=== PATIENT | female | born 1970 | race Caucasian/White ===

== ENCOUNTER → 2016-11-25 | Outpatient (CLI) | payer BC ==
[~2016-11-25] MED LIST: HYDR-5688 PO
[2016-11-25 17:35] LABS: MEAN CELL VOLUME 87.8 fL (80-100); MEAN CORPUSCULAR HEMOGLOBIN 30.7 pg (25-34); MEAN PLATELET VOLUME 9.5 fL (7.4-10.4); PLATELET COUNT 403 K/uL (130-400); WHITE BLOOD COUNT 9.53 K/uL (4.8-10.8)
== END | disposition home or self-care (01) ==
LOC: C.LAB1850 16:19
PROVIDERS: ATTEND Obstetrics & Gynecology
DX: N92.1 Excessive and frequent menstruation with irregular cycle (principal)

== ENCOUNTER → 2016-11-25 | Outpatient (CLI) | payer BC | END | disposition home or self-care (01) | LOC: C.PAPS 10:15 | PROVIDERS: ATTEND Obstetrics & Gynecology | DX: Z01.419 Encounter for gynecological examination (general) (routine) without abnormal findings (principal) ==

== ENCOUNTER → 2016-12-09 | Outpatient (CLI) | payer BC ==
--- NOTE | 2016-12-09 16:13 | MAMMOGRAPHY REPORT ---
BILATERAL DIGITAL DIAGNOSTIC MAMMOGRAM TOMOSYNTHESIS WITH CAD AND TARGETED LEFT ULTRASOUND: 12/09/2016 CLINICAL HISTORY: Bilateral mammography and follow-up of probably benign findings in the left breast on ultrasound. TECHNIQUE: Breast tomosynthesis in addition to standard 2D mammography was performed. Current study was also evaluated with a Computer Aided Detection (CAD) system. COMPARISON: Comparison is made to exams dated: 01/31/2015 mammogram, 01/11/2014 mammogram, 04/17/2014 u ltrasound, 04/17/2014 mammogram, and 01/31/2015 ultrasound - [facility]. BREAST COMPOSITION: There are scattered areas of fibroglandular density in both breasts. FINDINGS: The parenchymal pattern is similar to prior exams. There are round and punctate microcal cifications scattered in each upper outer posterior breast, that appears similar dating back to the 01/11/2014 mammograms and are therefore most likely benign, given nearly 3 years of stability. Ther e is a lobulated and circumscribed 14 mm mass in the upper outer posterior left breast. Given sligh t differences in positioning this does not appear significantly changed comparing back to the 2013 e xam. No new suspicious mass, architectural distortion or new cluster of suspicious microcalcificati ons are identified. Real-time high-resolution sonographic evaluation was performed in the 3:00 left breast to reevaluate the benign-appearing solid mass and probable cyst cluster. In the 3:00 axis, 3 cm from the nipple, there is a lobulated parallel hypoechoic solid mass measuring 11.9 x 6.2 x 12.6 mm. The 04/17/2014 ultrasound measurements were 12.0 x 12.4 mm, which is unchanged. This is considered benign given g reater than 2 years of stability and most likely represents a fibroadenoma. In the 3:00 left breast , 5 cm from the nipple, a small microcyst cluster is identified, measuring 6.0 x 3.8 x 4.7 mm. Prev ious measurements were 9.4 x 9.6 mm. Given slight differences in measuring technique this is also u nchanged and is benign given the definitive anechoic spaces within. 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 There is no mammographic or targeted sonographic philip dence of malignancy. Recommend routine bilateral mammography in one year, as well as annual mammogr aphy thereafter, based on the [employer] and [employer] recommenda tions. Approximately 10% of breast cancers are not detected with mammography. A negative mammographic repor t should not delay biopsy if a clinically suggestive mass is present. Winnie Honeycutt M.D. ay/:12/09/2016 14:35:09 Applications Sales Representative: Lesvia LEWIS(Oz)([place]), [facility] letter sent: Normal 1/2 BI-RADS Code: ACR BI-RADS Category 2: Benign Ultrasound BI-RADS: ACR BI-RADS Category 2: Benign
== END | disposition home or self-care (01) ==
LOC: C.MAMM 12:18
PROVIDERS: ATTEND Obstetrics & Gynecology
DX: N63 Unspecified lump in breast (principal)

== ENCOUNTER → 2016-12-25 | Outpatient (CLI) | payer BC | END | disposition home or self-care (01) | LOC: C.PATHSPEC 13:22 | PROVIDERS: ATTEND Obstetrics & Gynecology | DX: R93.8 Abnormal findings on diagnostic imaging of other specified body structures (principal) ==

== ENCOUNTER → 2017-09-13 | Outpatient (CLI) | payer BC ==
[~2017-09-13] MED LIST changes: +CIPR1TAB10 PO; -HYDR-5688 PO; +TRAM-453 PO
== END | disposition home or self-care (01) ==
LOC: C.RDSM 13:38
PROVIDERS: ATTEND Physical Medicine & Rehabilitation Sports Medicine
DX: M25.562 Pain in left knee (principal)

== ENCOUNTER 2017-09-22 16:31 | Emergency (ER) | payer BC ==
[~2017-09-22] VITALS: Ht 162.6 cm; Wt 68.0 kg
[2017-09-22 16:33] VITALS: TEMP 37.1; Ht 162.6 cm; Wt 68.0 kg
[2017-09-22] MEDS ORDERED: KETOROLAC TROMETHAMINE 60 MG/2 ML VIAL IM STA (16:49)
[2017-09-22] MEDS ORDERED: ONDANSETRON 4MG OD TAB PO STA (16:49)
[2017-09-22] MEDS ORDERED: CIPR1TAB10 PO (16:54)
--- NOTE | 2017-09-22 17:32 | DIAGNOSTIC IMAGING REPORT ---
R KNEE 3 VIEWS CLINICAL HISTORY: 47 years-old Female presenting with fall, b/l knee pain. TECHNIQUE: Frontal, lateral, and sunrise views of the right knee were obtained. COMPARISON: Correlation made to plain radiographs of the left knee performed the same day. FINDINGS: No acute fracture or malalignment. Mild osteophytosis noted in the lateral and patellofemoral compartments. Suggestion of mild medial joint space narrowing. Small joint effusion. No patellar subluxation. IMPRESSION: 1. Tricompartmental degenerative changes suggested. 2. Small knee joint effusion. 3. No acute osseous injury. Electronically signed by: Jared Santamaria M.D. 09/22/2017 5:30 PM Dictated Date/Time: 09/22/2017 5:29 PM
--- NOTE | 2017-09-22 17:44 | EMERGENCY ROOM VISIT NOTE ---
History First contact with patient: 16:37 Chief Complaint: KNEEPAIN Stated Complaint: B/L KNEE PAIN DUE TO FALL History of Present Illness The patient is a 47 year old female who presents to the Emergency Room with complaints of knee pain following a fall. The patient states that she was at the dog park and was sideswiped by a large dog, causing her to fall. She reports hearing a cracking and crunching sensation in both of her knees. She reports pain in bilateral knees which she rates a 7/10. She states she has had knee surgeries in the past on both knees performed by Dr. Fried. She has had meniscus repairs and cysts removed from the knees. She has most recently seen Dr. Bill last week. He is planning to do a series of Synvisc injections. The patient denies any other injuries. She has not taken anything for pain. She did not hit her head when she fell. She has been unable to walk since the injury. Review of Systems A 6 point review of systems was reviewed with the patient with pertinent positives and negatives as per history of present illness. All else were negative. Social History Smoking Status: Never Smoker Current/Historical Medications Scheduled Ciprofloxacin Hcl (Cipro), 500 MG PO BID Tramadol Hcl (Ultram), 50 MG PO Q4H Physical Exam Vital Signs Date Time Temp Pulse Resp B/P (MAP) Pulse Ox O2 Delivery O2 Flow Rate FiO2 09/22/17 18:40 49 18 116/42 99 Room Air 09/22/17 16:33 37.1 61 16 125/76 96 Room Air Physical Exam VITALS: Vitals are noted on the nurse's note and reviewed by myself. Vital signs stable. GENERAL: This is a 47-year-old female, in no acute distress, nondiaphoretic, well-developed well-nourished. SKIN: The skin was without rashes, erythema, edema, or bruising. HEAD: Normocephalic atraumatic. MUSCULOSKELETAL: There is tenderness to the medial aspect of the right and decreased range of motion secondary to pain. Mild tenderness to the lateral aspect of the left knee and decreased range of motion. There is no obvious joint effusion of either knee. There is no bruising or erythema. NEURO: Patient was alert and oriented to person place and time. Normal sensation to light and sharp touch. Medical Decision & Procedures ER Provider Diagnostic Interpretation: L KNEE 3 VIEWS FINDINGS: No acute fracture or dislocation. Mild tricompartmental osteoarthritis. No intra-articular loose body identified. No osteochondral defect. Mild soft tissue swelling with trace joint effusion. IMPRESSION: 1. Mild tricompartmental osteoarthritis without acute fracture or dislocation. 2. Mild soft tissue swelling with trace joint effusion. R KNEE 3 VIEWS FINDINGS: No acute fracture or malalignment. Mild osteophytosis noted in the lateral and patellofemoral compartments. Suggestion of mild medial joint space narrowing. Small joint effusion. No patellar subluxation. IMPRESSION: 1. Tricompartmental degenerative changes suggested. 2. Small knee joint effusion. 3. No acute osseous injury. Medications Administered Medications (Trade) Dose Ordered Sig/Kanwal Route Start Time Stop Time Status Last Admin Dose Admin Ketorolac Tromethamine (Toradol Inj) 60 mg NOW STAT IM 09/22/17 16:49 09/22/17 16:50 DC 09/22/17 17:00 60 MG Ondansetron HCl (Zofran Odt) 4 mg NOW STAT PO 09/22/17 16:49 09/22/17 16:50 DC 09/22/17 17:00 4 MG Tramadol HCl (Ultram Home Pack) 1 homepack UD ONCE PO 09/22/17 18:15 09/22/17 18:16 DC 09/22/17 18:32 1 HOMEPACK Medical Decision Differential diagnosis includes fracture, contusion, ligamentous injury, meniscal injury, among others. The patient was evaluated as above. She presents complaining of bilateral knee pain after a fall. Patient does have a significant history in both of her knees , with multiple surgeries. X-rays of both knees were performed and show arthritis as well as effusions with no acute bony abnormalities. Patient was placed in Qasim wraps bilaterally and given crutches to aid with ambulation. She was given a home pack and prescription of tramadol for pain. She was treated with Toradol in the emergency department with a little relief. She will follow- up with her established orthopedist for further evaluation. She verbalized understanding of my assessment and treatment plan and was discharged home in good condition. [place] Drug Monitoring Program Search Results: patient reviewed within database Medication Reconcilliation Current Medication List: was personally reviewed by me Blood Pressure Screening Patient's blood pressure: Normal blood pressure Impression Primary Impression: Bilateral knee pain Additional Impression: Fall Departure Information Dispostion Home / Self-Care Condition GOOD Prescriptions Tramadol Hcl (ULTRAM) 50 Mg Tab 50 MG PO Q4H for Pain, #12 TAB For Initial Treatment Prov: Delia Nina PA-C 09/22/17 Referrals Zoya Wu M.D. (PCP) Rohit Bill M.D. Patient Instructions My [facility] Additional Instructions You have been treated in the Emergency Department for Knee Pain. You have been prescribed tramadol to be used for pain control. You cannot drive or consume alcohol while on this medicine. This medicine should only be used for pain that cannot be controlled with [id number]-uvsrcis pain medicines. Stop taking this medication immediately if you have any signs of an allergic reaction. For pain control, you can use the following vkth-noo-fytfmte medicines (if >12 yo): - Regular strength (325mg/tab) Tylenol (acetaminophen) 2 tabs every 4-6 hours as needed. Do not exceed 12 tablets in a 24 hour period. Avoid taking more than 4 grams (4000 mg) of Tylenol per day. This includes any other sources of acetaminophen you may take on a regular basis. - Regular strength (200 mg/tab) Advil (ibuprofen) 1-2 tabs every 4-6 hours as needed. Do not exceed a dose of 3200 mg per day. If this is a recent injury (<24 hrs), ice can be applied to the area of pain for the first 3 days to help decrease pain and inflammation. Ice massages can be performed by freezing water in a paper cup, peeling back the cup to expose the ice and then massaging over the affected area. Follow up with your orthopedist for further evaluation. Call for appointment. Return to the Emergency Department if your current symptoms worsen despite treatment course outlined above. Problem Qualifiers
--- NOTE | 2017-09-22 17:48 | DIAGNOSTIC IMAGING REPORT ---
L KNEE 3 VIEWS HISTORY: 47 years-old Female fall, b/l knee pain acute bilateral knee pain without reported trauma COMPARISON: Left knee radiographs 09/13/2017 TECHNIQUE: 3 views of the left knee FINDINGS: No acute fracture or dislocation. Mild tricompartmental osteoarthritis. No intra-articular loose body identified. No osteochondral defect. Mild soft tissue swelling with trace joint effusion. IMPRESSION: 1. Mild tricompartmental osteoarthritis without acute fracture or dislocation. 2. Mild soft tissue swelling with trace joint effusion. The above report was generated using voice recognition software. It may contain grammatical, syntax or spelling errors. Electronically signed by: Azael Tripathi M.D. 09/22/2017 5:47 PM Dictated Date/Time: 09/22/2017 5:45 PM
[2017-09-22] MEDS ORDERED: TRAMADOL HCL 50 MG HOME PACK PO ONE (18:15)
[2017-09-22] MEDS ORDERED: TRAM-453 PO (18:30)
[2017-09-22 18:40] VITALS: BP 116/42; PULSE 49; O2SAT 99
== END 2017-09-22 18:46 | disposition home or self-care (01) ==
LOC: C.EDB 16:32 → C.EDD 18:46
DX: M25.561 Pain in right knee (principal); M25.562 Pain in left knee; W19.XXXA Unspecified fall, initial encounter; Y92.89 Other specified places as the place of occurrence of the external cause

== ENCOUNTER → 2018-02-25 | Outpatient (CLI) | payer OTHER ==
[~2018-02-25] MED LIST changes: +TRAM-10 PO; -TRAM-453 PO
[2018-02-25 10:08] LABS: BASO ABS # 0.06 K/uL (0-0.2); EOS % 1.7 %; HEMATOCRIT 36.9 % (37-47); HEMOGLOBIN 12.4 g/dL (12.0-16.0); IG# 0.01 K/uL (0.00-0.02); LYMPH % 33.2 %; LYMPH ABS # 1.98 K/uL (1.2-3.4); MEAN CORPUSCULAR HEMOGLOBIN 29.2 pg (25-34); MEAN CORPUSCULAR HGB CONC 33.6 g/dl (32-36); MEAN PLATELET VOLUME 9.1 fL (7.4-10.4); MONO % 5.7 %; MONO ABS # 0.34 K/uL (0.11-0.59); NEUT % 58.2 %; NEUT ABS # 3.48 K/uL (1.4-6.5); PLATELET COUNT 407 K/uL (130-400); RED CELL DISTRIBUTION WIDTH CV 13.9 % (11.5-14.5); WHITE BLOOD COUNT 5.97 K/uL (4.8-10.8)
[2018-02-25 10:35] LABS: BLOOD UREA NITROGEN 11 mg/dl (7-18); CALCIUM 8.7 mg/dl (8.5-10.1); CARBON DIOXIDE 29 mmol/L (21-32); CREATININE 0.86 mg/dl (0.60-1.20); GLUCOSE 82 mg/dl (70-99); SODIUM 137 mmol/L (136-145)
== END ==
LOC: C.CPL 09:36
PROVIDERS: ATTEND Physician Assistant
DX: Z01.818 Encounter for other preprocedural examination (principal)

== ENCOUNTER → 2018-02-25 | Outpatient (CLI) | payer BC, OTHER ==
--- NOTE | 2018-02-25 08:54 | DIAGNOSTIC IMAGING REPORT ---
RIGHT KNEE 5 VIEWS INCLUDING BILATERAL STANDING AP VIEWS CLINICAL HISTORY: RIGHT KNEE INSTABILITY COMPARISON: September 2017 DISCUSSION: The joint spaces appear well-preserved bilaterally. There is mild lateral femoral spurring on the contralateral left knee. No fractures or dislocations of the right knee are visualized. There is a tiny dorsal patellar spur. There is a suprapatellar joint effusion. IMPRESSION: 1. Joint effusion 2. No evidence of fracture 3. Tiny dorsal patellar spur Electronically signed by: Isac Mckeon M.D. 02/25/2018 8:53 AM Dictated Date/Time: 02/25/2018 8:52 AM
== END ==
LOC: C.RDSM 16:25
PROVIDERS: ATTEND Physician Assistant
DX: M25.461 Effusion, right knee (principal); M23.51 Chronic instability of knee, right knee

== ENCOUNTER → 2018-03-15 | Day surgery (SDC) | payer OTHER ==
[2018-03-01 10:50] VITALS: Ht 162.6 cm; Wt 68.2 kg
[~2018-03-15] VITALS: Ht 162.6 cm; Wt 68.2 kg
[~2018-03-15] MED LIST changes: +ATROPINE SULFATE 0.1 MG/ML 5ML SYR IV PRN; +CEFAZOLIN 2000MG IV PUSH 15 ML IV SCH; +CEFAZOLIN 2000MG IV PUSH 15 ML IV STA; -CIPR1TAB10 PO; +DEXAMETHASONE SOD INJ 4 MG/ML VIAL ONE; +EpHEDrine SULFATE INJ 50 MG/ML AMP IV PRN; +EpINEphrine HCL INJ 1 MG/ML 1ML SYRINGE ONE; +FENTANYL CITRATE INJ 50 MCG/1 ML 2 ML VIAL ONE; +FLUMAZENIL 0.1 MG/1 ML 10 ML VIAL IV PRN; +GLYCOPYRROLATE INJ 0.2 MG/ML VIAL ONE; +HYDROmorphone INJ 0.5 MG/0.5 ML SYR ONE; +HYDROmorphone INJ 2 MG/ML SYR/VIAL IV PRN; +KETOROLAC TROMETHAMINE 30 MG/ML VIAL IV. PRN; +LACTATED RINGER'S 1000ML 1,000 ML IV SCH; +LEVOFLOXACIN 500 MG TAB PO SCH; +LIDOCAINE HCL 2% 2 ML VIAL (20MG/ML) ONE; +MIDAZOLAM HCL 1 MG/ML 2ML VIAL ONE; +NALOXONE HCL 0.4 MG/1 ML VIAL/CARP IV PRN; +ONDANSETRON INJ 2 MG/ML 2 ML VIAL IV PRN; +ONDANSETRON INJ 2 MG/ML 2 ML VIAL ONE; +OXYCODONE/ACETAMINOPHEN 5-325 TAB ONE; +OXYCODONE/ACETAMINOPHEN 5-325 TAB PO PRN; +PROMETHAZINE HCL INJ 12.5 MG in SODIUM CHLORIDE 0.9% 50ML 50 ML IV PRN; +PROPOFOL IV EMULSION 10 MG/ML 20 ML VIAL ONE; +ROPIVACAINE 0.5% 5 MG/ML 30 ML VIAL ONE; +SODIUM CHLORIDE 0.9% 1000ML 1,000 ML IV SCH; +SODIUM CHLORIDE 0.9% INJ 10 ML VIAL ONE; +TRAMADOL HCL 50 MG TAB ONE; +TRAMADOL HCL 50 MG TAB PO PRN
--- NOTE | 2018-03-15 06:24 | History & Physical Bridge Note ---
H&P Re-Evaluation Bridge Note: I have examined the patient, reviewed the History & Physical and in the interval since the performance of the History & Physical I have noted the following changes of clinical significance: No changes noted
--- NOTE | 2018-03-15 06:25 | Discharge Instructions ---
Discharge Instructions Date of Service March 15, 2018. Visit Reason for Visit: Right Knee Chronic Acl Tear Discharge Discharge Diagnosis / Problem: same Discharge Goals Goal(s): Decrease discomfort, Improve function Medications Stopped Medications Name(s): na Restart Stopped Medication(s): use scripts as directed. Activity Recommendations Activity Limitations: as noted below Lifting Limitations: until after follow-up appointment Exercise/Sports Limitations: until after follow-up appointment May Resume Sexual Activity: when tolerated Shower/Bathe: keep incision dry Driving or Machine Use: Weightbearing Status: Right weightbearing (as tolerated) Anesthesia . Post Anesthesia Instructions: If you have had General Anesthesia or IV Sedation: * Do not drive today. * Resume driving when surgeon permits. * Do not make important decisions or sign legal documents today. * Call surgeon for: 1. Temperature elevations greater than 101 degrees F. 2. Uncontrollable pain. 3. Excessive bleeding. 4. Persistent nausea and vomiting. 5. Medication intolerance (nausea, vomiting or rash). * For nausea and vomiting use only clear liquids such as: tea, soda, bouillon until nausea subsides, then gradually increase diet as tolerated. * If you have any concerns or questions, call your surgeon's office. If physician is unavailable and it is an emergency, call 911 or go to the nearest emergency room. . Instructions / Follow-Up Instructions / Follow-Up The following instructions are a useful guide to questions you may have after your Anterior Cruciate Ligament Reconstruction surgery. If you have any questions contact the office at . ACTIVITY RECOMMENDATIONS: * Heavy manual labor is not permitted until 4-6 months after surgery. * Sports are not permitted until 6-9 months after surgery. * Return to activity is individualized. * DRIVING: Driving is not permitted until 3-4 weeks after surgery at a minimum. Please ask your doctor when it is safe to resume driving. If you have an automatic vehicle and your left leg has been operated on, then you may begin driving as soon as you are comfortable and can drive safely. * BATHING: You may shower or sponge-bathe immediately after surgery. The dressing will need to be covered with a plastic bag or plastic wrap until the dressing is changed on the fourth or fifth day after surgery. Once the dressing has been changed on the fourth or fifth day after surgery, you may shower and get the incision wet. * Wash with regular soap and water. * Do not bathe (submerge the incision), soak, swim or use a hot tub until the incision is completely healed over with normal skin and the doctor has given the OK to proceed. * There is no need to apply any ointments, powders or salves to your incision. * Do not apply alcohol or hydrogen peroxide directly to the incision. Diluted peroxide (50:50 mixture with sterile saline) may be used to clean dried blood from around the incision area. WORK/SCHOOL: * You may return to sedentary work or school when you are feeling comfortable. This is usually 3-7 days after surgery. * Expect increased discomfort with increased activity. Continue to elevate and ice the leg as much as possible. DIET: * Resume previous diet. MEDICATIONS: * You will have a prescription for pain medication and an anti-inflammatory medication after surgery. Use the pain pills for severe pain and the anti-inflammatory for less severe pain. * Once the pain pills have run out, try to use the anti-inflammatory. If this is not effective then contact the office for assistance. * The pain medication may cause nausea, constipation and sleepiness. You should see how they affect you before driving or similar activity. * The anti-inflammatory may cause stomach upset and bleeding. If this occurs, let your doctor know immediately . * Some patients may need blood clot prevention. This can be done with either a pill or a simple shot. Your doctor will advise you on when to begin these medications and how to take them. * Do not take aspirin or other anti-inflammatory products (i.e. Advil or Aleve ) if taking blood thinner medication. * Take a stool softener like Colace or a stimulant like Senokot to prevent constipation. SPECIAL CARE INSTRUCTIONS: The following instructions are a useful guide to questions you may have after your surgery. If you have any questions contact the office at . ICE: * You have the option of an ice cooler, gel packs or ice bags. * If you have an ice cooler, refer to the instructions for that device. * If you do not have an ice cooler, then you will need to use ice bags or gel packs. * Do not apply ice directly to the skin. * Use a thin dressing or stockinet between the skin and ice bag. * Apply ice for 20-30 minutes and repeat every 2-4 hours. This is especially important for the first 7-10 days after surgery. * Once the pain improves, use ice as needed. * The ice cooler can be used continuously. ELEVATION: * Keep your leg elevated at or above the level of your heart as much as possible. * Expect some increased discomfort and swelling if you are standing for any length of time. * When lying down, avoid placing anything under your knee. Rather, prop your leg up by placing several pillows under your heel or calf. DRESSING: * Your dressing will be changed at your first therapy appointment approximately 4-5 days after surgery. * Band-Aids, tape strips or gauze may be applied. You may then change your dressing daily. * Always wash your hands prior to touching the incision area. * Reapply dressing followed by the Qasim wrap or Tubi-embroidery machine operator stockinet, ice cooling pad and then the brace. * Once the stitches are removed, you may leave the wound open to air or cover with an Qasim Bandage or Tubi-embroidery machine operator stockinet. * If you have been given a white elastic stocking (ONELIA hose), wear as much as possible for the first 1-3 weeks depending on swelling. * Expect some bloody drainage for the first few days after surgery. * Leave the tape strips in place for 5-7 days. * Band-Aids and gauze may be changed daily. CRUTCHES: * You will need to use crutches after surgery. * Until your first doctor's appointment, you must use your crutches at all times when walking and should put no more than 50% of your normal weight on the surgical leg. * After your first doctor's appointment, you may gradually progress to full weight bearing and discontinue crutches as tolerated under the guidance of your therapist. * If you have had a microfracture procedure done, you may be advised to be non- weight bearing for up to 6 weeks. BRACE: * After surgery, you will be placed into a range of motion brace locked with your leg straight. This brace is to be worn at all times when walking (even with the crutches) and sleeping until your first doctors appointment. * The brace may be removed for therapy. * After your first therapy appointment, your therapist will open the brace to allow bending of the knee once your muscles are working better. * Until your first doctor's appointment, you should sleep with your brace locked with your knee fully straight. * If you have chosen to use a functional ACL brace then this brace will be supplied about 2-3 months after your surgery. During that time, you will attend therapy 2- 3 times per week. You will also need to do daily exercises for range of motion and strength as instructed. PROBLEMS/QUESTIONS: * If you have any problems such as severe pain, numbness, tingling or high fevers or if you have any questions, please contact the office at [phone]. * It is not uncommon to have some numbness and tingling after the surgery especially if you have had a nerve block done. This should gradually improve over the first 1- 2 days. If this persists longer or worsens then contact the office. FOLLOW UP VISIT: * If not already scheduled, please call the office at to schedule follow-up appointments for approximately 10 days and one month after surgery followed by monthly appointments thereafter. Diet Recommendations Recommended Home Diet: resume previous diet Procedures Procedures Performed: see op note Pending Studies Studies pending at discharge: no Medical Emergencies . Who to Call and When: Medical Emergencies: If at any time you feel your situation is an emergency, please call 911 immediately. . Non-Emergent Contact Non-Emergency issues call your: Specialist Call Non-Emergent contact if: wound has increased drainage, wound has increased redness, wound has increased pain . . "Provider Documentation" section prepared by Rohit Bill. .
--- NOTE | 2018-03-15 09:20 | [facility] Post Operative Brief Note ---
Immediate Operative Summary Operative Date March 15, 2018. Pre-Operative Diagnosis Right Knee ACL Tear Post-Operative Diagnosis Same Procedure(s) Performed Right Knee Arthroscopic Anterior Cruciate Ligament Reconstruction with Achilles Allograft, Partial Lateral Meniscectomy, Partial Medial Meniscectomy Surgeon Dr. Bill Quality Project Manager Surgeon(s) Aramis Balderas PA-C Estimated Blood Loss Minimal Findings Consistent with Post-Op Diagnosis Fluids (cc crystalloids) 1700cc Specimens None Drains None Anesthesia Type General Regional Complication(s) none Disposition Accompanied Pt To Recovery: no Disposition: Recovery Room / PACU
[2018-03-15] MEDS: FENTANYL CITRATE INJ 50 MCG/1 ML 2 ML VIAL IV PRN ×4 (09:27→09:49)
--- NOTE | 2018-03-15 09:28 | [facility] Operative Report ---
Operative Report Operative Date March 15, 2018. Pre-Operative Diagnosis Right Knee ACL Tear Post-Operative Diagnosis Right knee same with medial and lateral meniscal tears Procedure(s) Performed Right Knee Arthroscopic Anterior Cruciate Ligament Reconstruction with Achilles Allograft, Partial Lateral Meniscectomy, Partial Medial Meniscectomy Surgeon Dr. Bill Tumbler Machine Operator Helper Surgeon(s) Aramis Balderas PA-C Estimated Blood Loss Minimal Findings Right knee ACL tear, medial and lateral meniscal tears Fluids 1700cc Specimens None Drains None Anesthesia Type General Regional Complication(s) none Disposition no Recovery Room / PACU Indications This 47-year-old white female presented to the office with complaints of right knee instability and pain. She was known to be ACL deficient for more than 6 years. Patient suffered an acute injury earlier this spring while at a dog park. She was having continued instability and pain. She elected to proceed with surgical prevention after being educated about potential risks and outcomes. Preoperative imaging was obtained. Description of Procedure Patient was given a regional block and then taken to the operating room where she was given general anesthesia. She was prepped and draped in usual sterile fashion. Please see Dr. Bill's operative report for specifics of the procedure. I was present for the entire case from initial patient positioning through final wound closure. Assistance was provided in tissue retraction, hemostasis, graft preparation, hardware placement, arthroscopy, and final wound closure. Patient was taken to the recovery room in satisfactory condition. I attest to the content of the Intraoperative Record and any orders documented therein. Any exceptions are noted below.
--- NOTE | 2018-03-15 10:16 | OPERATIVE REPORT ---
DATE OF OPERATION: 03/15/2018 SURGEON: Rohit Bill MD HEALTHCARE BUSINESS ANALYST: Thompson Balderas PA-C. No resident or fellow available. 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 POSTOPERATIVE DIAGNOSES: 1. Complete anterior cruciate ligament tear. 2. Bucket handle tear of the lateral meniscus. 3. Posterior horn tear medial meniscus. 4. Minor articular disease medial femoral condyle. OPERATION PERFORMED: 1. Exam under anesthesia. 2. Diagnostic arthroscopy. 3. Arthroscopic incidental chondroplasty medial femoral condyle. 4. Arthroscopic partial medial meniscectomy. 5. Arthroscopic partial lateral meniscectomy large bucket handle tear irreparable. 6. Endoscopic ACL reconstruction using Achilles allograft. PERIOPERATIVE SITUATION: Medically cleared female with intractable knee instability and giving way, locking and catching. At this point in time she wants to proceed with surgical treatment. She was advised concerning age group that the autograft, tendons would likely be a tendinopathic and she elected to proceed with Achilles allograft at her choice. DESCRIPTION OF PROCEDURE: Patient appropriately identified, site verified, consent verified, 2 grams of Ancef confirmed as being given. The right lower extremity was examined revealing grossly positive Shama, pivot shift, anterior drawer test. Posterolateral corner, posteromedial corner were intact. Medial and lateral collateral ligaments were normal. She had full hyperextension, full flexion. A little scant effusion. The knee was then prepped and draped in usual routine fashion. Tourniquet inflated to 275 mmHg after exsanguination of limb with a rubber Esmarch bandage. Total tourniquet time was approximately 36 minutes. Anteromedial incision made vertically. Full thickness flaps raised down to the bone subperiosteally for the insertion of the graft. Inframedial and infralateral portals made. Inspection of the joint revealed the articular disease noted medially. This was only about 5 mm. It was debrided. No microfracture was performed. There was incidental chondroplasty of the patella, medial and lateral gutters were clean. The medial meniscus had a posterior horn cleavage tear which was resected to a stable balanced contoured rim with hand and power instrumentation leaving about 80% of the meniscus intact. The ACL was chronically gone. The notch was debrided. It was narrow. Incarcerated in the notch was a large deformed irreparable lateral meniscus bucket handle tear, it was very soft and mucoid, just touching the shaver eliminated the meniscus. The anterior and posterior horns were then debrided. The remaining meniscus was left intact. It was probably 60% of the total meniscus. The notchplasty was completed and then using a point and shoot guide set at about 65 degrees, a guide pin passed in proximal tibia coming off the center of the ACL insertion on the tibia, then the femoral guide placed low and posterior on the femoral wall and a drill socket made there, approximately 25 mm thick, all bone debris removed. The graft which was harvested excellent graft, which was prepared on the back table with a TightRope on the tibia for 10 mm bone block, 20 mm in length was then passed and secured with the [employer] TightRope and with a washer lock extended spike 16 washer and a 46 screw with excellent purchase. The knee was then examined revealing full hyperextension, full flexion, stable Shama, pivot shift, anterior drawer test. There was no graft impingement. Tourniquet was then deflated. The wounds were irrigated. Deep layer closed with 2-0 plain and superficial layer 2-0 Vicryl, skin with a 2-0 Prolene. Portals closed with 3-0 nylon, dressed appropriately with Xeroform, 4 x 4 gauze, sterile Webril, ABD pads and Qasim bandage, and range of motion brace locked at 0 degrees. Estimated blood loss trace 1100 mL of crystalloid. SUMMARY OF IMPLANTS: [employer] TightRope [id number] drill pin. Extended spiked washer 60 mm and a 46 mm screw. They are made by [employer]. Musculoskeletal transplant Achilles allograft. I attest to the content of the Intraoperative Record and any orders documented therein. Any exceptions are noted below. NICOLLED
[2018-03-15 10:52] VITALS: TEMP 37.4
--- NOTE | 2018-03-15 11:42 | Anesthesia Progress Nt - [facility] ---
Anesthesia Post Op Note Date & Time March 15, 2018 at 11:42 Vital Signs Pain Intensity: 6.0 Vital Signs Past 12 Hours Date Time Temp Pulse Resp B/P (MAP) Pulse Ox O2 Delivery O2 Flow Rate FiO2 03/15/18 11:21 67 16 130/68 (88) 98 Room Air 03/15/18 10:52 37.4 57 18 134/77 (96) 99 Room Air 03/15/18 10:42 62 18 03/15/18 10:42 63 18 98 03/15/18 10:41 141/78 03/15/18 10:40 37.4 56 12 141/78 98 Room Air 03/15/18 10:37 66 13 97 03/15/18 10:37 68 13 03/15/18 10:36 144/65 03/15/18 10:32 56 7 03/15/18 10:32 56 7 99 03/15/18 10:30 155/76 03/15/18 10:27 51 19 99 03/15/18 10:27 52 19 03/15/18 10:26 143/70 03/15/18 10:22 58 9 03/15/18 10:22 57 9 100 03/15/18 10:21 126/61 03/15/18 10:17 57 6 03/15/18 10:17 57 6 100 03/15/18 10:15 150/78 03/15/18 10:12 63 14 100 03/15/18 10:12 63 14 03/15/18 10:10 146/77 03/15/18 10:07 62 17 03/15/18 10:07 61 17 100 03/15/18 10:05 141/73 03/15/18 10:02 62 12 03/15/18 10:02 63 12 100 03/15/18 10:00 156/79 03/15/18 09:57 64 11 03/15/18 09:57 63 11 100 03/15/18 09:55 146/76 03/15/18 09:52 66 17 03/15/18 09:52 66 17 100 03/15/18 09:50 162/79 03/15/18 09:47 64 10 03/15/18 09:47 64 10 100 03/15/18 09:45 157/71 03/15/18 09:42 70 18 100 03/15/18 09:42 71 18 03/15/18 09:40 159/81 03/15/18 09:37 74 12 145/74 100 03/15/18 09:37 73 12 03/15/18 09:34 161/79 03/15/18 09:32 76 16 03/15/18 09:32 76 16 100 03/15/18 09:27 88 18 03/15/18 09:27 88 18 100 03/15/18 09:26 159/55 03/15/18 09:24 36.9 90 12 159/55 99 Mask 6 03/15/18 07:52 53 03/15/18 07:52 52 41 100 03/15/18 07:51 56 03/15/18 07:51 56 7 100 03/15/18 07:50 122/66 03/15/18 07:46 66 03/15/18 07:46 66 0 100 03/15/18 07:45 130/75 03/15/18 07:41 60 03/15/18 07:41 61 0 126/71 100 03/15/18 07:36 57 0 138/67 99 03/15/18 07:36 59 03/15/18 07:31 57 0 100 03/15/18 07:31 56 03/15/18 07:30 110/62 03/15/18 07:26 54 03/15/18 07:26 54 0 99 03/15/18 07:25 109/62 03/15/18 07:21 54 03/15/18 07:21 53 0 99 03/15/18 07:20 111/62 03/15/18 07:20 122/83 03/15/18 07:16 58 0 03/15/18 07:11 64 0 03/15/18 06:45 36.9 58 18 129/66 (87) 98 Room Air Notes Mental Status: alert / awake / arousable, participated in evaluation Pt Amnestic to Procedure: Yes Nausea / Vomiting: adequately controlled Pain: adequately controlled Airway Patency, RR, SpO2: stable & adequate BP & HR: stable & adequate Hydration State: stable & adequate Anesthetic Complications: no major complications apparent
[2018-03-15 12:03] VITALS: BP 124/76; PULSE 65; O2SAT 100
== END | disposition home or self-care (01) ==
LOC: X.SURG 06:18
PROVIDERS: ATTEND Physical Medicine & Rehabilitation Sports Medicine
DX: S83.511A Sprain of anterior cruciate ligament of right knee, initial encounter (principal); S83.251A Bucket-handle tear of lateral meniscus, current injury, right knee, initial encounter; S83.241A Other tear of medial meniscus, current injury, right knee, initial encounter; W54.1XXA Struck by dog, initial encounter; Y92.830 Public park as the place of occurrence of the external cause; M17.12 Unilateral primary osteoarthritis, left knee; Z88.0 Allergy status to penicillin; Z88.5 Allergy status to narcotic agent; Z91.041 Radiographic dye allergy status

== ENCOUNTER 2023-10-05 05:05 | Observation (INO) ==
--- NOTE | 2023-08-27 13:45 | PAT Medication Instructions ---
Medication Instructions Date of Service August 27, 2023 Home Medications ibuprofen 200 mg tablet 200 mg PO Q6H PRN naproxen sodium 220 mg capsule (Aleve) 220 mg PO BID PRN ASK your surgeon for instructions ibuprofen 200 mg tablet 200 mg PO Q6H PRN naproxen sodium 220 mg capsule (Aleve) 220 mg PO BID PRN Other Notes NOTHING TO EAT OR DRINK AFTER MIDNIGHT. If you have any questions please call us at [phone] or [phone] or [phone] or [phone]
--- NOTE | 2023-09-01 15:44 | Anesthesiology Consultation ---
Date of Service September 01, 2023 Assessment & Plan (1) Encounter for pre-operative examination: - check urine test STAT am DOS. - Case discussed with Dr. Alvarado who advised patient is acceptable to proceed not requiring further cardiac testing or evaluation prior to surgery. - Outpatient joint assessment: Patient is currently scheduled for inpatient pathway. If re-evaluated and patient/surgeon requests outpatient pathway, patient is acceptable candidate for outpatient joint program from anesthesia standpoint pending surgeon's office assessment of pt motivation/support/completion of same day joint program preop requirements. Chart Review Chart Review: Acceptable Risk for Surgery and Patient seen in Pre Admission Testing Teaching & Discussion Pre-Anesthesia Teaching/Discussion Notes: Instructed NPO after midnight before surgery, except medications with 15 cc of water. Medication instructions provided according to the PAT guidelines. History Surgery Operation Date: 10/05/23 11:50 Proposed Procedures p Right Anterior Total Hip Arthroplasty - Joey Foster, Height/Weight Height: 5 ft 7 in Weight: 69.1 kg Allergies Allergy/AdvReac Type Severity Reaction Status Date / Time codeine Allergy Unknown ANAPHYLAXIS Verified 08/24/23 09:46 Iodinated Contrast Media Allergy Unknown ANAPHYLAXIS Verified 08/24/23 09:46 Penicillins Allergy Unknown HIVES Verified 08/24/23 09:46 Medications Home Medications Medication Instructions Recorded Confirmed Last Taken ibuprofen 200 mg tablet 200 mg PO Q6H PRN Pain 08/24/23 08/24/23 Unknown naproxen sodium 220 mg capsule 220 mg PO BID PRN Pain 08/24/23 08/24/23 Unknown (Aleve) tramadol 50 mg tablet 50 mg PO Q8H PRN pain #30 tabs 09/01/23 09/01/23 Unknown Additional Notes: Patient was instructed and it was written on provided medication instruction list that tramadol can be continued as needed. She verbalized understanding and agreement, denied questions, concerns or additional medications, supplements. Past Medical History Medical History (Updated 09/01/23 @ 15:57 by Jannie Cunningham PA-C) cardiomyopathy 1999, resolved no issues, no f/u cardio or echo; very active Sinus bradycardia chronic per patient Patient denies h/o stroke, seizures, heart attack, heart failure, DM, HTN, blood clots/DVTs or blood transfusions. Exercise / Class Metabolic Activity II 4-5 Yardwork/Stairs/Walk up hill (denies chest discomfort or shortness of breath with 1 FOS) Past Family History Family History Mother Diabetes Hypertension Father Leukemia Sister Breast cancer age 61, chemo and radiation, no genetic testing Other Depression Generalized anxiety disorder Heart disease No pertinent family history in first degree relatives Pure hypercholesterolemia Denies family history of Ovarian cancer Colorectal cancer Past Surgical History Surgical History (Updated 09/01/23 @ 15:59 by Jannie Cunningham PA-C) History of anesthesia reaction bradycardia in ~2013 while under anesthesia for left knee surgery with Dr. Bill--treated with a medication during the surgery. Denies being told of needing cardioversion or defibrillation. History of dilatation and curettage uterine thermal ablation History of endometrial ablation History of tooth extraction S/P left knee surgery ~2013 S/P right knee arthroscopy 03/15/2018. [facility] [place]. LMA #4 with adductor canal block. 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 Patient denies chest pain, shortness of breath, dyspnea on exertion, reflux, fever, chills, cough, wheezing, dizziness, lightheadedness, presyncope or palpitations at rest or with exertion. Physical Exam Vital Signs Vitals BP 118/64 P 52 TEMP 98.3 SP02 96% on RA RESP 18 Physical Patient resting comfortably in chair in no acute distress, alert and oriented, responding appropriately throughout visit Full cervical extension range of motion without pain TMD 3.5 finger breadths Mallampati Score 2 Dentition: right upper front implant, denies chipped or loose teeth, caps/crowns, or bridges Lungs: normal respiratory effort. Good air movement, clear throughout to auscultation, no adventitious breath sounds Cardiac: bradycardiac, regular rhythm, no murmurs noted Carotid arteries: negative bruit bilat Lab Results Anesthesia Preop Results Results Anesthesia Widget: WBC 7.17 K/ul (4.8-10.8) 09/01/23 Hgb 12.3 g/dl (12.0-16.0) 09/01/23 Hct 35.7 % (37.0-47.0) L 09/01/23 Plt 389 K/uL (130-400) 09/01/23 Na 134 mmol/L (136-145) L 09/01/23 K 4.0 mmol/L (3.5-5.1) 09/01/23 Cl 101 mmol/L (98-107) 09/01/23 CO2 27 mmol/L (21-32) 09/01/23 BUN 17 mg/dl (6-23) 09/01/23 Creat 0.81 mg/dl (0.6-1.2) 09/01/23 Glucose Level 80 mg/dl (70-99(Fasting)) 09/01/23 PT 10.5 Seconds (9.0-12.0) 09/01/23 PTT 29.8 Seconds (21.0-31.0) 09/01/23 INR 1.0 (0.9-1.1) 09/01/23 Blood Type O Negative 09/01/23 Antibody Screen NEGATIVE 09/01/23 Testing Electrocardiogram Date: 09/01/23 Sinus bradycardia, rate 51 bpm Chest X-Ray Date: 09/01/23 No acute cardiopulmonary findings
--- OUTSIDE RECORDS SUMMARY | 2023-10-05 05:16 | External Medical Summary | Summary of Care ---
Author Name Unknown Organization [facility] Address [address] [facility] [place] [address] Phone [phone] Care Team Providers Care Configuration Management Advisor Name Role Phone Zoya Wu MD Primary Care Provider + Encounter Details Date Type Department Care Team (Late st Contact Info) Description 09/21/2023 Orders Only General Internal Medicine State Geronimo Ortega [address] [facility] [place] [id number] Zoya Wu MD [address] [facility] [place] [id number] Allergies Active Allergy Reactions Criticality Noted Date Comments Codeine 02/27/2014 Throat closes up, last dose age 13, had at same time as iv dye Iodinated Contrast Media 02/27/2014 Throat closed up age 13 Penicillins 02/27/2014 As a baby unknown reaction documented as of this encounter (statuses as of 09/21/2023) Medications Medication Sig Dispensed Refills Start Date End Date Status Flurbiprofen 100 MG Tablet Take 100 mg by mouth 2 times a day. 0 06/03/2020 Active diphenhydrAMINE (BENADRYL) 50 MG CAPSIndications:TI A (transient ischemic attack) Take 1 cap 1 hr prior to MRA 1 Cap 0 06/10/2020 Active Additional Information Patient not taking.Reported on 11/13/2021 Ciprofloxacin HCl 500 MG Oral Tablet (Cipro)Indications :Acute UTI Take 1 Tablet by mouth 2 times a day. 14 Tablet 0 11/14/2021 Active Paxlovid 20 x 150 MG & 10 x 100MG Oral Tablet Therapy Pack (Nirmatrelvir & Ritonavir)Indicati ons:COVID-19 virus infection Take 2 pink tablets of Nirmatrelvir and 1 white tablet of Ritonavir two times a day by mouth. 30 Tablet 0 03/27/2022 Active documented as of this encounter (statuses as of 09/21/2023) Active Problems No known active problems documented as of this encounter (statuses as of 09/21/2023) Immunizations Name Administration Dates Next Due SEASONAL INFLUENZA, PF, 6 M & Above, IM , (FLULAVAL or FLUZONE) 07/22/2020 Seasonal Influenza, Split, IIV3, With Preserve, Inj 08/23/2014 TD, Preservative Free 06/07/2020 TDAP (age 11 and older)(Adacel) 11/07/2008 documented as of this encounter Social History Tobacco Use Types Packs/Day Years Used Date Smoking Tobacco: Never Smokeless Tobacco: Never Alcohol Use Standard Drinks/Week Comments Yes 0 (1 standard drink = 0.6 oz pur e alcohol) 2 or 3 beers per week PHQ-2 Answer Date Recorded PHQ-2 Score 0 05/13/2020 Hunger Vital Sign Answer Date Recorded Worried About Running Out of Food in the Last Ye ar Never true 05/13/2020 Ran Out of Food in the Last Year Never true 05/13/2020 Sex and Gender Information Value Date Recorded Sex Assigned at Female 06/07/2020 8:59 AM EDT Gender Identity Female 06/07/2020 8:59 AM EDT Sexual Orientation Straight 06/07/2020 8: 59 AM EDT Job Start Date Occupation Industry Not on file Not on file Not on file documented as of this encounter Plan of Treatment Health Maintenance Due Date Last Done Comments Hepatitis B (1 of 3 - 3-dose series) 1968 HIV Screening 1983 Hepatitis C Screening 1986 Pap Smear 1989 Cervical Cancer Screening 1998 HPV/Co-Test 1998 Colonoscopy 2013 Fecal Occult Blood Test 2013 Sigmoidoscopy 2013 Zoster Vaccines (1 of 2) 2018 Depression Screening 06/07/2021 06/07/2020 COVID-19 Vaccine ( season) 2023 03/17/2021, 02/24/2021 Influenza Vaccine (FLU shot) (#1) 2023 07/22/2020, 08/23/2014, 08/23/2014 Mammogram 09/20/2024 09/20/2023, 11/02/2022, 05/30/2020, Additional history exists Diabetes Screening 05/08/2025 05/08/2022, 0 06/07/2020, 05/13/2020, Additional history exists Lipid Panel 05/13/2025 05/13/2020, 03/01/2014 Cologuard 12/19/2025 12/19/2022, 12/12/2022 Colorectal Cancer Screening 12/19/2025 DTaP,Tdap,and Td Vaccines (3 - Td or Tdap) 06/07/2030 06/07/2020, 11/07/2008 GARDASIL-HPV IMMUNIZATION SERIES Aged Out No longer eligible based on patient's age to complete this topic MENINGOCOCCAL (MENACTRA/MENVEO) Aged Out No longer eligible based on patient's age to complete this topic Pneumococcal Vaccine: Pediatrics (0 to 5 Years) and At-Risk Patients (6 to 64 Years) Aged Out No longer eligible based on patient's age to complete this topic documented as of this encounter Medical Devices Not on filedocumented as of this encounter Procedures Procedure Name Priority Date/Time Associated Diagnosis Comments MAMMOGRAM SCREENING BILATERAL Routine 09/20/2023 documented in this encounter Results * MAMMOGRAM SCREENING BILATERAL (09/20/2023) Anatomical Region Laterality Modality Breast Bilateral Other 09/20/2023 Marcella Hernandez MD RAD MAMMOGRAPHY documented in this encounter Additional Health Concerns Infection Onset Date Last Indicated Resolved Time COVID-19 (confirmed) 03/24/2022 03/24/2022 documented as of this encounter Care Teams Configuration Management Advisor Relationship Specialty Start Date End Date Zoya Wu MD [address] [place] [address] PCP - General Internal Medicine 02/27/14 documented as of this encounter
[2023-10-05] MEDS ORDERED: TRANEXAMIC ACID 1,000 MG **IV Pre-op IV SCH (06:00)
[2023-10-05] MEDS ORDERED: TRANEXAMIC ACID 1,000 MG **IV Intra-op IV SCH (06:00)
[2023-10-05] MEDS ORDERED: GABAPENTIN 600 MG DOSE PO SCH (06:00)
[2023-10-05] MEDS ORDERED: ACETAMINOPHEN 500 MG TAB PO SCH (06:00)
[2023-10-05] MEDS ORDERED: ceFAZolin 2000MG 2,000 MG/15 ML SYR IV SCH (06:00)
[2023-10-05] MEDS ORDERED: dexAMETHasone 4 MG TAB PO SCH (06:00)
[2023-10-05] MEDS ORDERED: FAMOTIDINE 20 MG TAB PO SCH (06:00)
[2023-10-05] MEDS ORDERED: ORTHO JOINT MIX INFIL SCH (06:00)
[2023-10-05] MEDS ORDERED: LR 60ML/HR IV SCH (06:00)
[2023-10-05] MEDS ORDERED: LR 500ML BOLUS, THEN 15ML/HR IV SCH (06:00)
--- NOTE | 2023-10-05 06:01 | History & Physical Report ---
Date of Service October 05, 2023 Assessment & Plan (1) Osteoarthritis of right hip: We will proceed with a right anterior total of arthroplasty. Postoperatively she will be started on aspirin for DVT prophylaxis and kept overnight in the hospital for postop medical management. She plans to use fit for play at home upon discharge. History of Present Illness Chief Complaint: Osteoarthritis of the right hip. Primary Care Provider: Zoya Wu MD Loulou is a pleasant 53-year-old female who has been dealing with chronic increasing right hip and groin pain. X-rays and clinical examination have been diagnostic for severe osteoarthritis of the right hip. She was seen by one of my partners. She has failed extensive conservative treatment. She has elected to proceed with a right anterior total of arthroplasty. Allergies Allergy/AdvReac Type Severity Reaction Status Date / Time codeine Allergy Unknown ANAPHYLAXIS Verified 10/05/23 05:51 Iodinated Contrast Media Allergy Unknown ANAPHYLAXIS Verified 10/05/23 05:51 Penicillins Allergy Unknown HIVES Verified 10/05/23 05:51 Home Medications Medication Instructions Recorded Confirmed Type ibuprofen 200 mg tablet 200 mg PO Q6H PRN Pain 08/24/23 10/05/23 History naproxen sodium 220 mg capsule 220 mg PO BID PRN Pain 08/24/23 10/05/23 History (Aleve) tramadol 50 mg tablet 50 mg PO Q8H PRN pain #30 tabs 09/01/23 10/05/23 Rx clindamycin HCl 150 mg capsule 150 mg PO Q6H 10/05/23 10/05/23 History Past Med/Surg History Medical History Sinus bradycardia chronic per patient cardiomyopathy 1999, resolved no issues, no f/u cardio or echo; very active Surgical History History of endometrial ablation History of dilatation and curettage uterine thermal ablation S/P right knee arthroscopy 03/15/2018. [facility] [place]. LMA #4 with adductor canal block. History of anesthesia reaction bradycardia in ~2013 while under anesthesia for left knee surgery with Dr. Bill--treated with a medication during the surgery. Denies being told of needing cardioversion or defibrillation. 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 History of tooth extraction S/P left knee surgery ~2013 Family History Mother Diabetes Hypertension Father Leukemia Sister Breast cancer age 61, chemo and radiation, no genetic testing Other Depression Generalized anxiety disorder Heart disease No pertinent family history in first degree relatives Pure hypercholesterolemia Denies family history of Ovarian cancer Colorectal cancer Social History Smoking Status: Never smoker Second Hand Exposure: No; Do You Dip or Chew Tobacco: No; Tobacco Cessation Education Requested by Patient: No Hx Alcohol Use: Yes Alcohol type: wine Alcohol Intake Frequency Comment: 2 times a week Hx Substance Use: No Preferred Language: Irish Communication Ability: Effective Forensic Specialist Required: No Beliefs That Will Affect Care: None marital status: Current Living Situation: Family Feels Safe at Home: Yes Safety Concerns: Feels Safe At This Time Assistive Devices: None Review of Systems All systems reviewed & are unremarkable except as noted in HPI & below. Physical Exam On physical examination of the right hip, she has decreased range of motion. She has pain with forced internal/external rotation. Most of her pain is located in her groin.. Constitutional WD/WN, vitals as above Eyes PERRL, conjunctivae normal, anicteric sclerae ENMT external ear and nose normal, oropharynx normal Neck trachea midline, no thyromegaly Respiratory normal respiratory effort Cardiovascular RRR, no murmur, no edema Gastrointestinal (Abdomen) normal bowel sounds, soft, nontender, no hepatosplenomegaly Psychiatric A+Ox3, euthymic affect Results & Data Results & Data Laboratory Results . Diagnostic Findings X-rays of the right hip show advanced osteoarthritis with joint space narrowing, osteophyte formation, and [id number] articulation.. PG Care Time/CCT Total # of Minutes Spent Total Time Spent with Patient: Total time spent is greater than 50% in coordination of care (as documented) at patient's floor/unit and/or counseling patient: Coding Level of Care Code None Diagnoses Osteoarthritis of right hip M16.11
[2023-10-05] MEDS ORDERED: BUPIVACAINE 0.5 % 5 MG/1 ML PF 10ML VIAL ONE (06:26)
[2023-10-05] MEDS ORDERED: PROMETHAZINE HCL 12.5 MG in SODIUM CHLORIDE 0.9% 50 ML IV PRN (06:34)
[2023-10-05] MEDS ORDERED: ePHEDrine sulfate 50 MG/ML AMP IV PRN (06:34)
[2023-10-05] MEDS ORDERED: ATROPINE SULFATE 0.1 MG/ML 10ML SYR IV PRN (06:34)
[2023-10-05] MEDS ORDERED: fentaNYL citrate PF 100 MCG/2 ML VIAL IV PRN (06:34)
[2023-10-05] MEDS ORDERED: fentaNYL citrate PF 100 MCG/2 ML VIAL ONE (06:38)
[2023-10-05] MEDS ORDERED: MIDAZOLAM HCL 1 MG/ML 2ML VIAL ONE ×2 (06:38→06:43)
[2023-10-05] MEDS ORDERED: ORTHO JOINT ANESTHETIC ONE (06:56)
[2023-10-05] MEDS ORDERED: PROPOFOL IV EMULSION 10 MG/ML 20 ML VIAL IV ONE (07:15)
[2023-10-05] MEDS ORDERED: ePHEDrine sulfate 50 MG/ML AMP ONE (07:56)
[2023-10-05] MEDS ORDERED: PHENYLEPHRINE HCL 10 MG/ML VIAL ONE (08:08)
--- NOTE | 2023-10-05 08:23 | Operative Report ---
PG Post Operative Report Pre & Post Diagnosis Operation Date: 10/05/23 07:00 Pre-Op Diagnosis: Degenerative joint disease Right Hip Post-Op Diagnosis: Degenerative joint disease Right Hip I identified the patient and participated in the time-out.: Yes Procedure Operation Date: 10/05/23 07:00 Actual Procedures p Right Anterior Total Hip Arthroplasty(Right) - Joey Foster DO Surgeon Joey Foster DO Legal Administrative Secretary None Estimated Blood Loss 200 Findings Consistent with Post-Op Diagnosis Specimens Right femoral head Description of Procedure Implants used I used a ZimmerBiomet total hip arthroplasty system with a size 2 standard offset Avenir Complete stem, a 48 mm G7 cup with a 25mm screw, an E1 polyethylene liner, a 32 mm ceramic head with a 0 neck. Loulou arrived at the hospital for the above procedure. She was seen in the preoperative holding area and the operative extremity was identified and signed. She was given a spinal anesthetic, a preoperative antibiotic, and TXA. She was then taken back to the operating room and laid on the table in the supine position. She was given basic sedation. The operative leg was secured to a Puristst leg positioner. The hip was then prepped and draped in sterile fashion. A timeout was done and the patient and the operative extremity was properly identified. An anterior approach was used. Dissection was taken down through the fascia and the tensor muscle belly was retracted laterally and the rectus was retracted medially. The circumflex vessels were identified and ligated. The capsule was then incised and tagged for later repair. The femoral neck was then cut and the femoral head was removed. The acetabulum was exposed. Time was spent doing a complete circumferential labral release. Sequential reaming of the acetabulum up to a size 47 reamer was done. Final reamings were done under fluoroscopy to ensure appropriate version. A Biomet 48 mm G7 cup was then impacted into place. A single 25 mm screw was placed. The E1 polyethylene liner was then snapped into place. Surrounding soft tissues were then injected with 100 cc of an orthopedic pain control cocktail. The proximal femur was then exposed. Sequential broaching up to a size 2 broach was done. Off that broach a size 32 head with a 0 neck was trialed. The hip was reduced and fluoroscopic images showed anatomic alignment of the implants in acceptable length. The broach was removed. The final size 2 standard offset Avenir Complete stem was then impacted into place. A ceramic 32 mm head with a 0 neck was then impacted onto the stem and the hip was reduced. Final fluoroscopic images showed anatomic alignment of the hip. The capsule was then closed with #1 Vicryl suture. A dilute betadyne lavage was then done for 3 minutes. The joint was then irrigated with normal saline solution. The fascia was closed with #1 PDS suture. Skin was closed with 2-0 Vicryl, agueda, and a Silverlon dressing. She was then transferred to a hospital bed and taken to the post anesthesia care unit in stable condition. She tolerated the procedure well. I attest to the content of the Intraoperative Record and any orders documented therein. Any exceptions are noted below.
--- NOTE | 2023-10-05 09:32 | Anesthesiology Progress Note ---
Date of Service October 05, 2023 Anesthesia Post Procedure Vital Signs Vital Signs: Temp Pulse Pulse Resp BP Pulse Ox O2 Del Method 10/05/23 09:25 36.7 C 58 L 17 116/68 99 Room Air 10/05/23 09:15 58 L 13 115/65 99 Room Air 10/05/23 09:05 58 L 16 126/70 98 Room Air 10/05/23 08:55 59 L 16 116/68 96 Room Air 10/05/23 08:45 60 20 117/67 99 Room Air 10/05/23 08:35 60 16 110/72 100 Oxymask 10/05/23 08:29 36.4 C L 81 15 118/76 97 Oxymask 10/05/23 05:47 36.7 C 52 L 18 102/69 98 Room Air O2 Flow Rate 10/05/23 09:25 10/05/23 09:15 10/05/23 09:05 10/05/23 08:55 10/05/23 08:45 10/05/23 08:35 5 10/05/23 08:29 5 10/05/23 05:47 Notes Mental Status: alert / awake / arousable Patient Amnestic to Procedure: Yes Nausea / Vomiting: adequately controlled Pain: adequately controlled Airway Patency, RR, SpO2: stable & adequate BP & HR: stable & adequate Hydration State: stable & adequate Neuraxial Anesthesia: was administered and sensory block is resolving Anesthetic Complications: no major complications apparent
[2023-10-05] MEDS ORDERED: bisacodyL 10 MG SUPP PR PRN (10:42)
[2023-10-05] MEDS ORDERED: NALOXONE HCL 0.4 MG/1 ML VIAL/CARP IV PRN (10:42)
[2023-10-05] MEDS ORDERED: MAGNESIUM HYDROXIDE SUSP 30 ML UDC PO PRN (10:42)
[2023-10-05] MEDS ORDERED: METOCLOPRAMIDE HCL INJ 5 MG/ML 2 ML VIAL IV PRN (10:42)
[2023-10-05] MEDS ORDERED: HYDROmorphone INJ 0.5 MG/0.5 ML SYR IV PRN (10:42)
[2023-10-05] MEDS ORDERED: ONDANSETRON INJ 2 MG/ML 2 ML VIAL IV PRN (10:42)
[2023-10-05] MEDS ORDERED: SODIUM CHLORIDE 0.9% 1,000 ML IV SCH (10:42)
--- NOTE | 2023-10-05 10:43 | XRay Report ---
SINGLE VIEW PELVIS; SINGLE VIEW RIGHT HIP CLINICAL HISTORY: Postoperative examination. FINDINGS: An AP portable view of the hips and pelvis with a crosstable lateral portable view of the r ight hip are obtained. No prior studies are available for comparison at the time of dictation. A bipo lar right hip arthroplasty is in near-anatomic alignment. A single cortical lag screw transfixes the acetabular cup. No acute fracture is identified. There are expected postoperative changes overlying t he right hip including skin clips, subcutaneous gas, and soft tissue swelling. IMPRESSION: Expected postoperative findings status post right hip arthroplasty. No acute fracture is seen. ACT 112: Negative or not required by law. Electronically signed by: John Jimenez M.D. 10/05/2023 10:42 AM
[2023-10-05] MEDS ORDERED: NAPROXEN 250 MG TAB PO PRN (10:55)
[2023-10-05] MEDS: KETOROLAC 30 MG/ML VIAL IV SCH ×3 (11:00→22:52)
--- NOTE | 2023-10-05 11:50 | Fluoroscopy Report ---
FL hip RT 1V CLINICAL HISTORY: RIGHT ANTERIOR HIP COMPARISON STUDY: Right hip radiographs August 11, 2023. FLUOROSCOPY TIME: 17 seconds. Ka, r: 1.4891 mGy FLUOROSCOPIC IMAGES: 1 FINDINGS: Fluoroscopy was provided during total right hip arthroplasty. Alignment appears anatomic. T here is an acetabular screw. No unexpected radiopaque foreign bodies. IMPRESSION: Fluoroscopy provided during total right hip arthroplasty. ACT 112: Negative or not required by law. Electronically signed by: Marco Antonio Rowe M.D. 10/05/2023 11:49 AM
[2023-10-05] MEDS: oxyCODONE HCL IR 5 MG TAB (IMMEDIATE RELEASE) PO PRN ×3 (15:44→23:53)
[2023-10-05] MEDS: ceFAZolin 1000MG 1,000 MG/7.5 ML SYR IV SCH ×2 (15:47→23:24)
[2023-10-05] MEDS: DOCUSATE SODIUM 100 MG CAP PO SCH (19:49)
[2023-10-05] MEDS ORDERED: SENNA 8.6 MG TAB PO SCH (21:00)
[2023-10-06] MEDS: KETOROLAC 30 MG/ML VIAL IV SCH (04:58)
[2023-10-06] MEDS ORDERED: dexAMETHasone 4 MG TAB PO SCH (08:00)
[2023-10-06] MEDS: DOCUSATE SODIUM 100 MG CAP PO SCH (08:58)
[2023-10-06] MEDS ORDERED: MULTIVITAMIN TAB PO SCH (09:00)
[2023-10-06] MEDS: oxyCODONE HCL IR 5 MG TAB (IMMEDIATE RELEASE) PO PRN (09:02)
--- NOTE | 2023-10-06 09:07 | Orthopedic Progress Note ---
Date of Service October 06, 2023 Assessment & Plan (1) Status post right hip replacement: Overall she is doing very well today. She is not having much pain to the right hip. She will be seen by physical therapy today for ambulation and range of motion exercises. She is on aspirin for DVT prophylaxis. She can be discharged home later today. She will follow-up with orthopedics in 2 weeks for postoperative care. Subjective .Loulou was seen and examined at bedside this morning. Overall she is doing quite well with improved pain to the right hip. She is currently sitting bedside in her chair in no apparent distress. She has been up and ambulating to the bathroom. She has no other complaints today. Review of Systems All systems reviewed & are unremarkable except as noted in HPI & below. Physical Exam . On physical examination on the right hip, her dressing is clean, dry, intact. Her leg is out in full extension. She has active plantarflexion dorsiflexion. +2 DP and PT pulses. Less than 2-second capillary refill. Normal sensation. Neurovascular intact. Results & Data Results & Data Laboratory Results . Diagnostic Findings . Postoperative x-rays of the right hip show the prosthesis to be in anatomical alignment without any evidence of fracture complication or loosening. PG Care Time/CCT Total # of Minutes Spent Total Time Spent with Patient: Total time spent is greater than 50% in coordination of care (as documented) at patient's floor/unit and/or counseling patient: Coding Level of Care Code 61772 Post Operative Follow-Up Diagnoses Status post right hip replacement Z96.641
--- NOTE | 2023-10-06 09:08 | Discharge Summary ---
Date of Service October 06, 2023 Admission HPI (Per Admitting) Loulou is a pleasant 53-year-old female who has been dealing with chronic increasing right hip and groin pain. X-rays and clinical examination have been diagnostic for severe osteoarthritis of the right hip. She was seen by one of my partners. She has failed extensive conservative treatment. She has elected to proceed with a right anterior total of arthroplasty. Admission Exam (Per Admitting) On physical examination of the right hip, she has decreased range of motion. She has pain with forced internal/external rotation. Most of her pain is located in her groin.. Principal Diagnosis Same as "Discharge Diagnosis" noted below under Discharge Instructions. Discharge Exam . On physical examination on the right hip, her dressing is clean, dry, intact. Her leg is out in full extension. She has active plantarflexion dorsiflexion. +2 DP and PT pulses. Less than 2-second capillary refill. Normal sensation. Neurovascular intact. Discharge Data Procedures Performed Operation Date: 10/05/23 07:00 Actual Procedures p Right Anterior Total Hip Arthroplasty(Right) - Joey Foster DO Ordered Studies 10/05/23 07:00 FL hip RT 1V Routine Hospital Course (1) Status post right hip replacement: On October 05, 2023 Loulou arrived at [facility] in the hospital and underwent a right hip replacement without complications. She had a spinal anesthetic. Postoperatively, she was started on aspirin for DVT prophylaxis and transferred to the general orthopedic floor. Her hospital course was uneventful. On postoperative day #1, her vital signs were stable and her pain was well- controlled. She was able to participate well with physical therapy doing ambulation and range of motion exercises. She was then discharged home. She will follow-up with orthopedics in 2 weeks for postoperative care. PG Care Time/CCT Total # of Minutes Spent Total Time Spent with Patient: Total time spent is greater than 50% in coordination of care (as documented) at patient's floor/unit and/or counseling patient: Discharge Plan Discharge Items Patient Disposition: Home - Home Health Services Reason For Visit: POST SURGICAL CARE Discharge Diagnosis: Right hip replacement Activity: Per Instructions section Non-emergency contact: Surgeon Call non-emergency contact if: your wound has increased redness and your wound has increased drainage Follow-up/Referrals: Zoya Wu MD [Primary Care Provider] - Diet: Regular Addtl Attending Provider Instructions: Activity and Therapy Recommendations: * If you are using [facility] then therapy will be provided at your home until they feel you have accomplished all of your goals. * If you are using [facility] then Physical Therapy will be provided until they feel you are ready to start Outpatient Physical Therapy. * If you are not using home therapy then Outpatient Physical Therapy should start about 3-5 days from your day of surgery. Therapy will last about 6-10 weeks * You were shown a series of exercises in the hospital. Do these exercises three times each day including the exercises you were shown in physical therapy. * Get up and walk several times each day.~ For the first four weeks, try not to stand or walk for more than one hour at a time. If you do stand or walk for more than one hour, you will not hurt anything, but your leg will likely swell.~~ * As you feel comfortable, you may change from the walker or crutches to a cane and~then to independent walking. Medications: * Narcotic You will likely be sent home from the hospital with a prescription for the narcotic pain medication that worked best throughout your stay. * Cefadroxil -take the antibiotic twice a day for 10 days to prevent infection. * Aspirin Most patients will be required to take Aspirin 81mg twice a day for 6 weeks after surgery. This is obtained [id number] and a prescription is not necessary. * Other medications may be prescribed for specific circumstances. If you have any questions, please call the office at . * Resume previous home medications unless otherwise instructed TEDs/Elastic Stockings: The white elastic stockings help limit swelling and prevent blood clots from forming in your legs. The more you wear them, the more they work. Wear them for six weeks. Dressing Care: Leave the Silverlon dressing in place for 7 days. After 7 days you may remove the dressing. If the incision is not draining then you may leave the agueda open to air. If there is a little bit of drainage or if the agueda are getting stuck on your clothing then cover the incision with a dry dressing. The agueda will be removed at your 2 week follow-up appointment. Showering: You may shower with the Silverlon dressing in place. Do not let the shower spray hit the dressing directly. Pat the Silverlon dressing dry. If the dressing becomes wet underneath, then simply remove the dressing. Keep the incision dry until you are 7 days out from the day of surgery. After 7 days you may remove the Silverlon dressing and shower with the agueda exposed. Let soapy water run over the agueda and pat them dry. Do not scrub or soak the incision. Things To Watch For: * Drainage from the incision site that occurs more than one week after your surgery. * Increased redness at the incision site. * Fever above 102 degrees Fahrenheit. * Unusual chest pain or shortness of breath. * Call [facility] at with any of the above problems Follow-Up Visit: Follow-up with Dr. Foster's PA (Joey Camarillo) 2-3 weeks after your day of surgery. He will remove your agueda and answer any questions. If you have any additional questions or concerns, Dr Foster is usually in the office at the same time and will be available An appointment was probably scheduled when you signed-up for surgery in the office. If you have any questions call Office Instructions: More detailed instructions as well as Frequently Asked Questions were provided in a folder by our office when you signed-up for surgery. Please review these instructions when you get home. If you have any further questions or concerns, please feel free to call the office at [phone] Pending Studies at Discharge: No Stand-Alone Forms: My [facility], Smoking Cessation Medications and DC Order Prescriptions: New oxycodone 5 mg Tablet 5 - 10 mg PO Q6 PRN (Reason: pain) Qty: 30 0RF aspirin 81 mg tablet,delayed release (DR/EC) 81 mg PO BID 42 Days Qty: 84 0RF cefadroxil 500 mg capsule 500 mg PO BID 10 Days Qty: 20 0RF Discontinued tramadol 50 mg tablet 50 mg PO Q8H PRN (Reason: pain) Qty: 30 0RF ibuprofen 200 mg Tablet 200 mg PO Q6H PRN (Reason: Pain) naproxen sodium [Aleve] 220 mg Capsule 220 mg PO BID PRN (Reason: Pain) clindamycin HCl 150 mg Capsule 150 mg PO Q6H Admission Data Admit Date/Time: 10/05/23 09:46 Attending Provider: Joey Foster Admit Provider: Joey Foster Primary Care Provider: Zoya Wu
== END 2023-10-06 11:00 | disposition home health service (06) ==
LOC: PACUINP 05:05 → ASU 05:05 → 3E 10:42